=== PATIENT | male | born 1945 | race Caucasian/White ===

== ENCOUNTER 2018-10-20 05:55 | Inpatient (IN) ==
[2018-10-14 12:18] LABS: Appearance,Urine CLEAR; Bacteria,Urine 0 /hpf (0); Bilirubin,Urine NEG (NEG); Color,Urine YELLOW; Glucose,Urine (UA) NEGATIVE (NEG); Leukocyte Esterase,Urine NEG /uL (NEG); Mucus,Urine FEW /hpf (0); Protein,Urine NEG (NEG); Urine Blood 0.03 mg/dL (<0.03); Urine RBC 2 /hpf (0-1); Urine Squamous Epithelial Cell < 1 /hpf (0-4); Urine WBC 1 /hpf (0-4); Urobilinogen,Urine NEG (NEG)
[2018-10-14 13:35] LABS: Blood Urea Nitrogen 12 mg/dl (8-23)
[2018-10-14 13:49] LABS: Basophils # (Auto) 0.1 K/mcL (0.0-0.3); Basophils % (Auto) 0.9 % (0.0-2.0); Eosinophils # (Auto) 0.6 K/mcL (0.0-0.7); Eosinophils % (Auto) 8.7 % (0.0-7.0); Lymphocytes # (Auto) 2.3 K/mcL (1.5-4.8); Lymphocytes % (Auto) 32.6 % (15.5-49.0); Mean Cell Volume 101.4 fL (80.0-100.0); Mean Corpuscular HGB Conc 33.7 g/dL (31.0-36.0); Monocytes # (Auto) 0.8 K/mcL (0.1-0.9); Monocytes % (Auto) 11.8 % (1.0-12.0); Platelet Count 289 K/mcL (140-440); RBC 4.31 M/mcL (4.50-5.90); Red Cell Distribution Width 13.2 % (11.5-14.5)
[2018-10-14 14:03] LABS: Estimated Average Glucose(eAG) 108 mg/dL; Hemoglobin A1C 5.4 % HGB (4.0-6.0)
[2018-10-20] MEDS ORDERED: oxyCODONE 10 MG TAB.ER.12H PO SCH (07:00)
[2018-10-20] MEDS ORDERED: CELECOXIB 200 MG CAPSULE PO SCH (07:00)
[2018-10-20] MEDS ORDERED: ceFAZolin 1 GM VIAL IV SCH (07:00)
[2018-10-20] MEDS ORDERED: PREGABALIN 75 MG CAPSULE PO SCH (07:00)
[2018-10-20] MEDS ORDERED: MIDAZOLAM 5 MG/5 ML VIAL IV ONE (07:45)
[2018-10-20] MEDS ORDERED: ePHEDrine 50 MG/ML AMPUL IV ONE (07:45)
[2018-10-20] MEDS ORDERED: LIDOCAINE HCL/PF 100 MG/5 ML SYRINGE IV ONE (07:45)
[2018-10-20] MEDS ORDERED: fentaNYL 250 MCG/5 ML VIAL IV ONE (07:45)
[2018-10-20] MEDS ORDERED: TRANEXAMIC ACID 1,000 MG/10 ML VIAL IV ONE ×2 (07:45→09:14)
[2018-10-20] MEDS ORDERED: PROPOFOL 200 MG/20 ML VIAL IV ONE (07:45)
[2018-10-20] MEDS ORDERED: DEXAMETHASONE 10 MG/ML VIAL IV ONE (07:45)
[2018-10-20] MEDS ORDERED: ONDANSETRON 4 MG/2 ML VIAL IV ONE (07:45)
[2018-10-20] MEDS ORDERED: HEPARIN 20,000 UNIT/ML VIAL IR ONE (08:29)
[2018-10-20] MEDS ORDERED: PROMETHAZINE 25 MG/ML VIAL IV PRN (09:03)
[2018-10-20] MEDS ORDERED: BENZOCAINE/MENTHOL 1 LOZENGE PO PRN ×2 (09:03→09:14)
[2018-10-20] MEDS ORDERED: ACETAMINOPHEN 1,000 MG/100 ML BOTTLE IV ONE (09:03)
[2018-10-20] MEDS ORDERED: LACTATED RINGERS 250 ML IV PRN (09:03)
[2018-10-20] MEDS ORDERED: IPRATROPIUM/ALBUTEROL 3 ML AMPUL.NEB NEB PRN (09:03)
[2018-10-20] MEDS ORDERED: ONDANSETRON 4 MG/2 ML VIAL IV PRN ×2 (09:03→09:14)
[2018-10-20] MEDS ORDERED: FLUMAZENIL 0.1 MG/ML ML IV PRN (09:03)
[2018-10-20] MEDS ORDERED: diphenhydrAMINE 50 MG/ML VIAL IV PRN (09:03)
[2018-10-20] MEDS ORDERED: NALOXONE HCL 0.4 MG/ML VIAL IV PRN (09:03)
[2018-10-20] MEDS ORDERED: HYDROmorphone 2 MG/ML VIAL IV PRN (09:03)
[2018-10-20] MEDS ORDERED: MEPERIDINE 25 MG/ML SYRINGE IV PRN (09:03)
[2018-10-20] MEDS ORDERED: MAGNESIUM HYDROXIDE 30 ML ORAL.SUSP PO PRN (09:14)
[2018-10-20] MEDS ORDERED: BISACODYL 10 MG SUPP.RECT PR PRN (09:14)
[2018-10-20] MEDS ORDERED: POLYETHYLENE GLYCOL 3350 17 GM PACKET PO PRN (09:14)
[2018-10-20] MEDS ORDERED: FLEETS ADULT ENEMA PR PRN (09:14)
--- NOTE | 2018-10-20 09:14 | Brief Operative Note ---
Date of procedure: 10/20/18 Pre-op diagnosis: Left hip DJD Post-op diagnosis: same Procedure: Left anterior total hip arthroplasty Grafts/Implants: Yes (Depuy Actis 9 Hi offset stem, +1.5 36 delta head, 56 cup, neutral altrx elodia) Anesthesia: spinal, GLMA Findings: arthritis Complications: none Surgeon: John Baldwin Reverser: Maurizio Sanchez Estimated blood loss (cc): 150 Specimens Removed/Pathology: none sent Condition: stable Disposition: PACU
[2018-10-20] MEDS ORDERED: LACTATED RINGERS 1,000 ML IV SCH (09:15)
[2018-10-20] MEDS: fentaNYL 100 MCG/2 ML VIAL IV PRN ×4 (09:41→10:01)
[2018-10-20] MEDS: KETOROLAC 15 MG/ML VIAL IV PRN ×2 (09:45→20:34)
--- NOTE | 2018-10-20 10:01 | Operative Note ---
DATE OF OPERATION: 10/20/2018 PREOPERATIVE DIAGNOSIS: Left hip degenerative joint disease. POSTOPERATIVE DIAGNOSIS: Left hip degenerative joint disease. PROCEDURE PERFORMED: Left anterior total hip arthroplasty using DePuy Actis size 9 high offset femoral stem, +1.5 36 mm delta ceramic head ball, a 56 Malone cup with a neutral AltrX liner. SURGEON: John Baldwin MD HOUSE MOVER HELPER: Chico Sanchez PA-C. ANESTHESIA: Spinal plus general. DRAINS: None. SPECIMENS: Femoral head and reamings, which were discarded. BLOOD LOSS: 150 mL COMPLICATIONS: None. POSTOPERATIVE CONDITION: Stable. INDICATIONS FOR SURGERY: This is a 73-year-old male who has had progressive worsening left hip pain. Radiographs and physical exam were consistent with advanced degenerative disease. FINDINGS AT SURGERY: As above. Post implantation showed satisfactory component position and similar leg lengths. PROCEDURE IN DETAIL: The patient had been seen preoperatively and the correct operative site had been marked after informed consent had been obtained which included discussion of risks and benefits of surgery. Risks including, but not limited to, bleeding, possibly requiring transfusion; infection, possibly requiring implant removal and prolonged IV antibiotics; injury to nerves, blood vessels other surrounding structures; anesthetic risks; incomplete or no resolution of symptoms; leg length discrepancy; dislocation; fracture; DVT and pulmonary embolus risks; and the possibility of needing further revision joint surgery. He understood these risks and wished to proceed. Correct operative site was marked and then patient received spinal anesthesia. He was then taken to the operating room and general anesthesia given. The patient was carefully positioned onto the fracture table and the left hip and groin were then carefully prepped and draped in normal sterile fashion and a timeout was performed verifying patient name, operative site, and plan. Ioban was used to cover all skin surfaces and then a standard anterior approach incision was made with a scalpel through skin and subcutaneous tissue. Hemostasis was obtained with Bovie cautery and then blunt dissection was taken down on to the tensor fascia and this was undermined circumferentially. IrriSept was irrigated and then a ring retractor placed. Tensor fascia was incised in line with muscle fibers and then careful blunt dissection was taken medial to the muscle belly. Blunt cobra retractors were placed on the superior and inferior femoral neck. Circumflex vessels were coagulated and cut and then vastus fascia split distally. Anterior capsulectomy was performed and capsule releases taken out towards the trochanter. Traction was placed on the leg and then a corkscrew was placed in the femoral head. Osteotome was used under fluoro to identify our approximate neck cut trajectory and then oscillating tip saw was used to make our neck cut. Femoral head was removed. Bone wax was placed on the cut neck surface. We then exposed the acetabulum. Labrum was excised circumferentially as well as soft tissue from the floor. We started reaming directly medializing down to the tear drop and then increased reamer size and angle until a 55 got rim ream. We opened a 56 3-hole Malone cup. The acetabulum was irrigated with IrriSept, after a minute pulse lavaged with saline. The cup was then impacted at approximately 40 degrees of inclination and about 25 to 30 degrees of anteversion. We got excellent press-fit, so a center hole cover was placed. There was some minimal osteophyte off the anterior acetabulum which was removed with a curved osteotome. A center hole cover was placed and then a neutral AltrX liner was carefully aligned and impacted and carefully verified to be fully seated. We then released traction from the leg, externally rotated maximally, released capsule around the medial and posterior neck and then the leg was extended and adducted. Capsule was then released out towards the greater trochanter and then after we had adequate exposure a Box osteotome was used to make canal entry. An awl was used to identify canal trajectory. A rongeur and rasp were used to lateralize. We then began sequentially broaching up to a size 8 stem. We seated this below our neck cut a little ways and then calcar planed. We placed a high offset neck trial based off of preoperative templating and a +1.5 head ball trial. The hip was then reduced with mild tension. AP pelvis was taken to verify neutral rotation and then AP of the nonoperative and operative hips were overlaid. Our leg lengths appeared similar so we did, however, appear to be undersized on the stem. I dislocated and re-exposed the proximal femur. Head and neck trial were removed. I was able to impact the 8 broach down below our neck cut a little ways so we removed this and went up to a size 9. This seated right at our neck cut. We went ahead and removed the 9 trial and opened a 9 high offset Actis stem. The canal was irrigated with IrriSept, after a minute pulse lavaged with saline and then the stem was impacted. It seated down onto the neck with the collar so we opened a 1.5 head ball. The stem was carefully cleaned and dried and the head ball impacted with multiple impacts from the [id number]. We then reduced the hip with similar tension as prior. Final fluoro images were taken and saved. We irrigated the joint with IrriSept, after a minute pulse lavaged with saline. Tensor fascia was closed with two running #1 Vicryl sutures. A ring retractor was removed and IrriSept was irrigated again and after a minute pulse lavaged with saline. We tacked fat to fascia with Vicryl and then 2-0 Monocryl for subcutaneous and viviana for skin. Xeroform sterile dressings were applied. The patient was then awakened, extubated, and transferred to recovery in stable condition. BJB:sasha Job ID: [id number] Doc ID: [id number] John STEINER
--- NOTE | 2018-10-20 10:02 | XRay Report ---
HISTORY: Postop left side total hip prosthesis FINDINGS: There is a well-positioned left side total hip prosthesis. There is no fracture or malalignment. There are overlying skin viviana and soft tissue gas. The indwelling right total hip prosthesis appears normal and there is no evidence of resorption of bone around the hardware. Densely calcified plaques are seen in the iliac and femoral arteries. IMPRESSION: Well-positioned left total hip prosthesis Interpreted and Authenticated by: Johnie Isaac 10/20/18
[2018-10-20] MEDS: 0.45 % SODIUM CHLORIDE 1,000 ML IV SCH ×2 (10:34→18:33)
[2018-10-20] MEDS: 0.9 % SODIUM CHLORIDE 10 ML SYRINGE IV SCH ×3 (14:08→23:42)
[2018-10-20] MEDS: ceFAZolin 1 GM VIAL IV SCH ×2 (15:05→23:42)
[2018-10-20] MEDS: DOCUSATE SODIUM 100 MG CAPSULE PO SCH (20:33)
[2018-10-20] MEDS: ASPIRIN 325 MG ENTERIC COATED TABLET PO SCH (20:34)
[2018-10-20] MEDS ORDERED: METOPROLOL SUCCINATE 25 MG TAB.XL.24H PO SCH (21:00)
[2018-10-20] MEDS ORDERED: OMEPRAZOLE 20 MG CAPSULE PO SCH (21:00)
[2018-10-20] MEDS ORDERED: SENNOSIDES 1 TABLET PO SCH (21:00)
[2018-10-20] MEDS: diphenhydrAMINE 25 MG CAPSULE PO PRN (22:21)
[2018-10-20] MEDS: HYDROCODONE/APAP 7.5/325MG TABLET PO PRN (22:21)
[2018-10-21] MEDS: diphenhydrAMINE 25 MG CAPSULE PO PRN ×2 (04:07→08:15)
[2018-10-21] MEDS: HYDROCODONE/APAP 7.5/325MG TABLET PO PRN ×2 (04:08→08:14)
[2018-10-21] MEDS: 0.45 % SODIUM CHLORIDE 1,000 ML IV SCH (04:15)
[2018-10-21] MEDS: 0.9 % SODIUM CHLORIDE 10 ML SYRINGE IV SCH (05:02)
--- NOTE | 2018-10-21 07:41 | Discharge Summary ---
Providers - Providers Patient information: Note initiated : 10/21/18 at 7:39 am Service Date, if different from initiated Date: [] Patient: Gordo Petersen 73 y/o M admitted on 10/20/18 for Left Total Hip Arthroplasty. Chief Complaint: [] Discharge date: 10/21/18 Hospitalization Hospital course: Pt was admitted for a [facility]. Pt underwent the procedure on the day of admission. Pt spent one night on the floor for IV abx, IV pain meds, and PT. Pt will use ASA for DVT prophylaxis and was prescribed appropriate pain meds. Will f/u in 2 weeks. Discharge diagnosis: L hip OA Exam - Exam Clean and dry: Yes Weight bearing status: as tolerated Ortho Discharge - [facility] - Patient Instructions Diet: Regular Diet Activity: activity as tolerated Total Hip Protocol: Follow activity instructions as provided by Physical Therapy. Dressing Care: May shower in 2 days - Follow Up Plan Follow Up Appointments: Maurizio Sanchez PA-C [Physician Nuclear Medicine Medical Director] - 11/04/18 10:40 am Disposition: Home, Self-Care Prognosis: Good Rehab Potential: Good Overall status at discharge: patient is progressing back to baseline - Orders For Discharge Prescriptions: Aspirin [Ecotrin] 325 mg PO BID #60 tab.ec Hydrocodone/APAP 7.5/325Mg [[place] 7.5-325Mg] 1 - 2 tab PO Q4HP PRN #90 tab PRN Reason: Pain Level 3-6 Pending Studies Resuscitation Status Full Code Diet Regular Diet Start ThuOct 20 09 Hydrocodone Bitart/Acetaminophen ([place] 7.5/325mg) 0 tab PO Q4HP PRN PRN Reason: PAIN LEVEL 3-6 Last Admin: 10/21/18 04:08 Dose: 1 tab Admin: 10/20/18 22:21 Dose: 1 tab Aspirin (Ecotrin) 325 mg PO BID [facility] Last Admin: 10/20/18 20:34 Dose: 325 mg Diphenhydramine HCl (Benadryl) 25 mg PO Q4HP PRN PRN Reason: Allergic Symptoms Last Admin: 10/21/18 04:07 Dose: 25 mg Admin: 10/20/18 22:21 Dose: 25 mg Docusate Sodium (Colace) 100 mg PO BID [facility] Last Admin: 10/20/18 20:33 Dose: Not Given Sodium Chloride (Sodium Chloride 0.45%) 1,000 mls @ 100 mls/hr IV .Q10H [facility] Last Admin: 10/21/18 04:15 Dose: Infusion: 10/20/18 21:34 Dose: 0 mls/hr Admin: 10/20/18 18:33 Dose: Admin: 10/20/18 10:34 Dose: 100 mls/hr Ketorolac Tromethamine (Toradol) 15 mg IV Q6HP PRN PRN Reason: Pain Stop: 10/22/18 09:16 Last Admin: 10/20/18 20:34 Dose: 15 mg Admin: 10/20/18 09:45 Dose: 15 mg Metoprolol Succinate (Toprol Xl) 25 mg PO HS [facility] Last Admin: 10/20/18 20:34 Dose: 25 mg Morphine Sulfate (Morphine) 0 mg IV Q1HP PRN PRN Reason: PAIN LEVEL > 6 Last Admin: 10/20/18 15:05 Dose: 4 mg Omeprazole (Prilosec) 20 mg PO HS [facility] Last Admin: 10/20/18 20:34 Dose: 20 mg Senna (Senokot) 2 tab PO [facility] Last Admin: 10/20/18 20:33 Dose: Not Given Sodium Chloride (Saline Flush) 10 ml IV Q8 [facility] Last Admin: 10/21/18 05:02 Dose: Admin: 10/20/18 23:42 Dose: 10 ml Admin: 10/20/18 22:16 Dose: 10 ml Admin: 10/20/18 14:08 Dose: Not Given Shift Summary 10/21/18 03:13 Shift Summary by Shira Jimenez AOx4. L total hip with gauze dressing CDI. OOB SBA with FWW. AV Boots. Voiding without issue. PIV SL. VSS. AICD in place to L chest. Pain elevated to 8/10 overnight. PRN toradol x1 without relief. Pain decreased to 5/10 post administration of PRN norco + benadryl. Patient currently resting in bed without complaint. Initialized on 10/21/18 03:13 - END OF NOTE
[2018-10-21] MEDS: ASPIRIN 325 MG ENTERIC COATED TABLET PO SCH (08:15)
[2018-10-21] MEDS: DOCUSATE SODIUM 100 MG CAPSULE PO SCH (08:15)
[2018-10-26] MEDS ORDERED: predniSONE 10 MG TABLET PO SCH (08:00)
== END 2018-10-21 12:50 | disposition home or self-care (01) | DRG 470 ==
LOC: MEDSUR 05:55
PROVIDERS: ADMIT Orthopaedic Surgery; ATTEND Orthopaedic Surgery

== ENCOUNTER 2021-06-30 08:03 | Inpatient (IN) ==
[2021-06-30] MEDS ORDERED: diphenhydrAMINE 50 MG/ML VIAL IV ONE (08:56)
[2021-06-30] MEDS ORDERED: PROCHLORPERAZINE 10 MG/2 ML VIAL IV ONE (08:56)
[2021-06-30] MEDS ORDERED: DEXAMETHASONE 10 MG/ML VIAL IV ONE (08:56)
[2021-06-30] MEDS ORDERED: HYDROcodone/APAP 5/325MG TABLET PO ONE (08:56)
[2021-06-30] MEDS ORDERED: 0.9 % SODIUM CHLORIDE 1,000 ML IV ONE (08:56)
[2021-06-30] MEDS ORDERED: ALBUTEROL SULFATE 200 PUFF INHALER INH ONE (08:56)
--- NOTE | 2021-06-30 09:00 | Emergency Department Note ---
HPI General Chief complaint: Cold/Flu Symptoms Stated complaint: cough Time Seen by Provider: 06/30/21 08:09 Source: patient, family (), RN notes reviewed and old records reviewed Mode of arrival: ambulatory History of Present Illness HPI Narrative: Narrative: Related Data Home Medications Medication Instructions Recorded Confirmed epinephrine 0.3 mg IM ONCE PRN 10/14/18 06/18/21 metoprolol succinate 25 mg PO HS 10/14/18 06/18/21 aspirin 81 mg tablet,delayed 81 mg PO .TWICE A WEEK tab 08/24/19 06/18/21 release losartan 25 mg tablet 25 mg PO QDAY 08/27/20 06/18/21 ezetimibe 10 mg tablet 10 mg PO QDAY 01/01/21 06/18/21 Previous Rx's Medication Instructions Recorded hydrocodone-acetaminophen 1 - 2 tab PO Q4HP PRN #90 tab 10/21/18 omeprazole 20 mg capsule,delayed 20 mg PO HS #90 cap 06/13/21 release fluticasone furoate 100 1 inh INHALATION Q24H #60 ea 06/27/21 mcg-vilanterol 25 mcg/dose inhalation powder Allergies Allergy/AdvReac Type Severity Reaction Status Date / Time quinine Allergy Mild Chest Pain Verified 06/18/21 14:53 Hydroxychloroquine AdvReac Mild Itching Verified 06/18/21 14:53 lisinopril AdvReac Mild Cough Verified 06/18/21 14:53 yellow jackets Allergy Unknown Swelling Uncoded 06/18/21 14:53 of Lip/Tongue/Throat Review of Systems ROS ROS Narrative: Narrative: PFSH Narrative Patient History Narrative: Narrative: Medical/Surgical/Family History All Active Problems ICD (implantable cardioverter-defibrillator) in place (Chronic) Ischemic cardiomyopathy (Chronic) Medicare annual wellness visit, initial (Acute) 23-polyvalent pneumococcal polysaccharide vaccine declined (Chronic) Influenza vaccine refused (Chronic) Fibula fracture (Acute) Benign paroxysmal positional vertigo (Acute) Hypotension due to hypovolemia (Acute) Diffuse papular rash (Acute) Encounter for long-term (current) use of high-risk medication (Chronic) Cough in adult (Acute) Sore throat (Acute) Post-nasal drip (Acute) Dupuytren's contracture of both hands (Chronic) 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) Arthralgia of hands, bilateral (Chronic) Right hip pain (Chronic) Trochanteric bursitis, right hip (Chronic) Left carpal tunnel syndrome (Chronic) Arthritis (Chronic) Joint pain (Chronic) Gallbladder problem (Chronic) Heart trouble (Chronic) Hypercholesteremia (Chronic) Acid reflux (Chronic) BPH without obstruction/lower urinary tract symptoms (Chronic) COPD (chronic obstructive pulmonary disease) (Chronic) Personal history of colonic polyps (Chronic) Coronary artery disease (Chronic) Erectile dysfunction (Chronic) Fracture of finger, closed (Chronic) Hematuria, unspecified (Chronic) Hyperlipidemia (Chronic) Hypertension, essential (Chronic) Osteoarthrosis (Acute) Adhesions of foreskin (Chronic) Hand joint pain (Chronic) Swelling (Chronic) Medical History 23-polyvalent pneumococcal polysaccharide vaccine declined Declining Prevnar 13 and Pneumovax 23 Acid reflux 1996 Adhesions of foreskin Arthralgia of hands, bilateral Arthritis 2000 Bleeding tendency 2004 BPH without obstruction/lower urinary tract symptoms COPD (chronic obstructive pulmonary disease) Coronary artery disease With stent Dupuytren's contracture of both hands Erectile dysfunction Erectile/Sexual Dysfunction Fracture of finger, closed Gallbladder problem 2007 Hand joint pain Heart trouble 2008 Hematuria, unspecified BEH History of pneumothorax Hypercholesteremia 2008 Hyperlipidemia Hypertension, essential ICD (implantable cardioverter-defibrillator) in place Inflammatory arthropathy Influenza vaccine refused Ischemic cardiomyopathy Joint pain 2000 Kidney stones 1998 Left carpal tunnel syndrome Medicare annual wellness visit, initial [place] (myocardial infarction) Osteoarthrosis Personal history of colonic polyps Rheumatoid factor positive Right hip pain Swelling Trochanteric bursitis, right hip Surgical History H/O foot surgery [id number] H/O heart artery stent 2008 History of cervical discectomy With hardwear History of heart surgery History of orthopedic surgery finger History of repair of right rotator cuff History of right hip replacement History of vasectomy Hx of cholecystectomy 2009 S/P hip replacement 2011 S/P LASIK surgery of both eyes S/P surgery on nasal septum 1993 Status post colonoscopy 2011- Dr. Felix Status post left foot surgery Family History Mother Malignant neoplasm of breast Mother at 42Y Father Malignant neoplasm of pharynx at 68Y - throat CA Sister Malignant neoplasm of ovary Unknown Diabetes mellitus Social History Smoking Status: Former smoker Alcohol Intake Frequency: 0-2 drinks per day Substance Use: does not use Exam Narrative Narrative: Narrative: Course Vital Signs Vital signs: Vital Signs Temperature 98.0 F 06/30/21 08:07 Pulse Rate 76 06/30/21 08:07 Respiratory Rate 24 H 06/30/21 08:07 Blood Pressure 115/97 06/30/21 08:07 Pulse Oximetry (%) 84 L 06/30/21 08:07 Temperature 98.0 F 06/30/21 08:07 Pulse Rate 74 06/30/21 08:31 Respiratory Rate 24 H 06/30/21 08:07 Blood Pressure 111/76 06/30/21 08:31 Pulse Oximetry (%) 93 06/30/21 08:31 MDM MDM Narrative Medical decision making narrative: Narrative: ED POC Tests ED POC Tests: PATRICK - SARS Antigen Positive Discharge Plan Patient/Caregiver Discharge Instructions Prescriptions: No Action omeprazole 20 mg capsule,delayed release(DR/EC) 20 mg PO HS Qty: 90 RF: 3 Breo Ellipta 100-25 mcg/dose blister with device 1 inh inhalation Q24H Qty: 60 RF: 0 aspirin [Adult Low Dose Aspirin] 81 mg tablet,delayed release (DR/EC) 81 mg PO .TWICE A WEEK RF: 0 losartan 25 mg tablet 25 mg PO QDAY RF: 0 ezetimibe [Zetia] 10 mg tablet 10 mg PO QDAY RF: 0 metoprolol succinate 25 MG tablet extended release 24 hr 25 mg PO HS RF: 0 epinephrine 0.3 MG/0.3 ML auto-injector 0.3 mg IM ONCE PRN (Reason: Allergic Reaction) RF: 0 hydrocodone-acetaminophen 1 TAB tablet 1 - 2 tab PO Q4HP PRN (Reason: Pain Level 3-6) Qty: 90 RF: 0
--- NOTE | 2021-06-30 09:04 | Emergency Department Note ---
SOB HPI General Chief Complaint: Cold/Flu Symptoms Stated Complaint: cough Time Seen by Provider: 06/30/21 08:09 Source: patient, family (), RN notes reviewed and old records reviewed Mode of arrival: ambulatory Limitations: no limitations History of Present Illness HPI Narrative: Narrative: 76-year-old male complains of increasing shortness of breath associated with coughing x2 weeks. It is unrelieved with his bronchodilators and he feels it makes it worse. He denies any fevers or chills complains of cough it is nonproductive complains of chest pain with coughing no chest pain with rest. Pain is worse with severe coughing and shortness of breath that is worse with any exertional activity or coughing. He denies any hemoptysis he denies any abdominal pain he denies any bowel or bladder changes. is positive for Covid. MD Complaint: shortness of breath, cough and pain with inspiration Onset (ago): week(s) (2) Context: recent illness Severity: moderate Consistency/Duration: intermittent Improves with: nothing Worsens with: exertion, medication, coughing and inspiration Known history of: COPD and other ( with Covid) Associated symptoms: Reports chest pain, pain with inspiration, cough, wheezing and palpitations; Denies fever, sputum production, orthopnea, lower extremity pain, polyuria, polydipsia, parasthesias, carpopedal spasm, hemoptysis, diaphoresis, nausea/vomiting, syncope, abdominal pain, rash and sense of impending doom Treatment prior to arrival: bronchodilator Related Data Home oxygen amount: none Home Medications Medication Instructions Recorded Confirmed epinephrine 0.3 mg IM ONCE PRN 10/14/18 06/30/21 metoprolol succinate 25 mg PO HS 10/14/18 06/30/21 aspirin 81 mg tablet,delayed 81 mg PO .TWICE A WEEK tab 08/24/19 06/30/21 release losartan 25 mg tablet 25 mg PO QDAY 08/27/20 06/30/21 ezetimibe 10 mg tablet 10 mg PO QDAY 01/01/21 06/30/21 Previous Rx's Medication Instructions Recorded hydrocodone-acetaminophen 1 - 2 tab PO Q4HP PRN #90 tab 10/21/18 omeprazole 20 mg capsule,delayed 20 mg PO HS #90 cap 06/13/21 release fluticasone furoate 100 1 inh INHALATION Q24H #60 ea 06/27/21 mcg-vilanterol 25 mcg/dose inhalation powder Allergies Allergy/AdvReac Type Severity Reaction Status Date / Time quinine Allergy Mild Chest Pain Verified 06/18/21 14:53 Hydroxychloroquine AdvReac Mild Itching Verified 06/18/21 14:53 lisinopril AdvReac Mild Cough Verified 06/18/21 14:53 yellow jackets Allergy Unknown Swelling Uncoded 06/18/21 14:53 of Lip/Tongue/Throat Review of Systems ROS ROS Narrative: Narrative: All systems ED: reviewed and negative except as stated. [facility] Narrative Patient History Narrative: Narrative: Medical/Surgical/Family History All Active Problems (Updated 06/30/21 @ 11:35 by Choco Molina MD) Pneumonia due to 2019 novel coronavirus (Acute) Hypoxia (Acute) ICD (implantable cardioverter-defibrillator) in place (Chronic) Ischemic cardiomyopathy (Chronic) Medicare annual wellness visit, initial (Acute) 23-polyvalent pneumococcal polysaccharide vaccine declined (Chronic) Influenza vaccine refused (Chronic) Fibula fracture (Acute) Benign paroxysmal positional vertigo (Acute) Hypotension due to hypovolemia (Acute) Diffuse papular rash (Acute) Encounter for long-term (current) use of high-risk medication (Chronic) Cough in adult (Acute) Sore throat (Acute) Post-nasal drip (Acute) Dupuytren's contracture of both hands (Chronic) 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) Arthralgia of hands, bilateral (Chronic) Right hip pain (Chronic) Trochanteric bursitis, right hip (Chronic) Left carpal tunnel syndrome (Chronic) Arthritis (Chronic) Joint pain (Chronic) Gallbladder problem (Chronic) Heart trouble (Chronic) Hypercholesteremia (Chronic) Acid reflux (Chronic) BPH without obstruction/lower urinary tract symptoms (Chronic) COPD (chronic obstructive pulmonary disease) (Chronic) Personal history of colonic polyps (Chronic) Coronary artery disease (Chronic) Erectile dysfunction (Chronic) Fracture of finger, closed (Chronic) Hematuria, unspecified (Chronic) Hyperlipidemia (Chronic) Hypertension, essential (Chronic) Osteoarthrosis (Acute) Adhesions of foreskin (Chronic) Hand joint pain (Chronic) Swelling (Chronic) Medical History 23-polyvalent pneumococcal polysaccharide vaccine declined Declining Prevnar 13 and Pneumovax 23 Acid reflux 1996 Adhesions of foreskin Arthralgia of hands, bilateral Arthritis 1999 Bleeding tendency 2004 BPH without obstruction/lower urinary tract symptoms COPD (chronic obstructive pulmonary disease) Coronary artery disease With stent Dupuytren's contracture of both hands Erectile dysfunction Erectile/Sexual Dysfunction Fracture of finger, closed Gallbladder problem 2006 Hand joint pain Heart trouble 2008 Hematuria, unspecified BEH History of pneumothorax Hypercholesteremia 2008 Hyperlipidemia Hypertension, essential ICD (implantable cardioverter-defibrillator) in place Inflammatory arthropathy Influenza vaccine refused Ischemic cardiomyopathy Joint pain 1999 Kidney stones 1997 Left carpal tunnel syndrome Medicare annual wellness visit, initial [place] (myocardial infarction) Osteoarthrosis Personal history of colonic polyps Rheumatoid factor positive Right hip pain Swelling Trochanteric bursitis, right hip Surgical History H/O foot surgery [id number] H/O heart artery stent 2007 History of cervical discectomy With hardwear History of heart surgery History of orthopedic surgery finger History of repair of right rotator cuff History of right hip replacement History of vasectomy Hx of cholecystectomy 2008 S/P hip replacement 2010 S/P LASIK surgery of both eyes S/P surgery on nasal septum 1994 Status post colonoscopy 2011- Dr. Felix Status post left foot surgery Family History Mother Malignant neoplasm of breast Mother at 42Y Father Malignant neoplasm of pharynx at 68Y - throat CA Sister Malignant neoplasm of ovary Unknown Diabetes mellitus Social History Smoking Status: Former smoker Alcohol Intake Frequency: 0-2 drinks per day Substance Use: does not use Exam Narrative Narrative: Narrative: General Limitations: no limitations General appearance: Present alert and in distress Head Head: Present atraumatic, normocephalic and normal inspection Eye Eye: Present normal appearance, PERRL and EOMI ENT ENT: Present normal exam and mucous membranes dry Neck Neck: Present normal inspection and full ROM Chest Chest: Present normal inspection; Absent tenderness Respiratory Respiratory: Present respiratory distress, wheezes, prolonged expiratory phase and decreased breath sounds Cardiovascular Cardiovascular: Present regular rate, normal rhythm and systolic murmur Adbominal Abdominal: Present soft; Absent distention, tenderness, guarding and rebound Extremities Extremities: Present normal inspection and full ROM; Absent tenderness, normal capillary refill, pedal edema and pretibial edema Back Back: Present normal inspection; Absent CVA tenderness (R) and CVA tenderness (L) Neurological Neurological: Present alert and oriented X3 Psychiatric Psychiatric: Present normal affect and normal mood Skin Skin: Present warm (WNL); Absent rash Course Vital Signs Vital signs: Vital Signs Temperature 98.0 F 06/30/21 08:07 Pulse Rate 76 06/30/21 08:07 Respiratory Rate 24 H 06/30/21 08:07 Blood Pressure 115/97 06/30/21 08:07 Pulse Oximetry (%) 84 L 06/30/21 08:07 Temperature 98.0 F 06/30/21 08:07 Pulse Rate 65 06/30/21 11:17 Respiratory Rate 12 06/30/21 11:17 Blood Pressure 102/58 06/30/21 11:17 Pulse Oximetry (%) 94 06/30/21 11:17 MDM MDM Narrative Medical decision making narrative: Narrative: 76-year-old COPD patient hypoxic with Covid pneumonia received dexamethasone and IV fluids is stable on supplemental oxygen discussed with hospitalist who graciously agreed to admit patient Differential Diagnosis Differential Diagnosis: Covid, Covid pneumonia, pneumonia, COPD Medical Records Medical records reviewed: Yes I reviewed the patient's medical records. Lab Data Lab results reviewed: Yes I reviewed the patient's lab results. Result diagrams: 06/30/21 08:57 06/30/21 08:57 Labs: Lab Results 06/30/21 06/30/21 06/30/21 Range/Units 08:57 08:57 09:44 WBC 3.9 L (4.5-11.0) K/mcL RBC 4.55 L (4.63-6.08) M/mcL Hgb 15.9 (13.7-17.5) g/dL Hct 45.0 (40.1-51.0) % MCV 98.9 (80.0-100.0) fL MCH 34.9 H (26.0-34.0) pg MCHC 35.3 (31.0-36.0) g/dL RDW 12.3 (11.5-14.5) % Plt Count 123 L (140-440) K/mcL MPV 10.0 (7.4-10.4) fL Neut % (Auto) 54.4 (38.0-78.0) % Lymph % (Auto) 34.6 (15.5-49.0) % [place] % (Auto) 10.5 (1.0-12.0) % Eos % (Auto) 0 (0.0-7.0) % Baso % (Auto) 0.5 (0.0-2.0) % Lymph # (Auto) 1.35 L (1.50-4.80) K/mcL [place] # (Auto) 0.41 (0.10-0.90) K/mcL Eos # (Auto) 0 (0.00-0.70) K/mcL Baso # (Auto) 0.02 (0.00-0.30) K/mcL Absolute Neutrophils 2.12 (1.80-8.00) K/mcL VBG Lactic Acid 0.4 L (0.5-2.0) mmol/L Sodium 126 L (133-145) mmol/L Potassium 3.6 (3.3-5.1) mmol/L Chloride 90 L (96-108) mmol/L Carbon Dioxide 21 L (22-30) mmol/L Anion Gap 15.0 (8.0-16.0) BUN 11 (8-23) mg/dL Creatinine 1.0 (0.7-1.2) mg/dL GFR Calculation 72 Glucose 97 (70-105) mg/dL Calcium 8.1 L (8.6-10.4) mg/dL Total Bilirubin 0.4 (0.1-1.0) mg/dL AST 50 H (<40) U/L ALT 28 (<40) U/L Alkaline Phosphatase 54 (39-117) U/L Total Protein 6.7 (5.9-8.4) gm/dL Albumin 3.5 (3.2-5.2) gm/dL Globulin 3.2 (2.2-3.7) gm/dL Albumin/Globulin Ratio 1.1 (1.0-2.3) ED POC Tests ED POC Tests: PATRICK - SARS Antigen Positive Radiology Data Radiology results reviewed: Yes I reviewed the patient's radiology results. Radiology results narrative: Covid pneumonia EKG Data EKG #1: EKG attestation: Yes I reviewed and interpreted this EKG. and Yes There are no EKG findings of acute coronary syndrome EKG shows normal: sinus rhythm Rate: normal (74) Rhythm: NSR Q waves: v1, v2, v3 and v4 Interpretation: nonspecific ST-T wave changes Pulse Oximetry Data Pulse Ox %: 84 Interpretation: 84% on room air that is hypoxic for this patient is 93% on 2 L nasal cannula. Discharge Plan Patient/Caregiver Discharge Instructions Pt seen by B[facility]ING STITCHER/PA only: No Clinical Impression: Pneumonia due to 2019 novel coronavirus, Hypoxia Patient Disposition: Xfer As Inpt ([facility]) Follow up with: Moisés Alcocer PA-C [Primary Care Provider] - Prescriptions: No Action omeprazole 20 mg capsule,delayed release(DR/EC) 20 mg PO HS Qty: 90 RF: 3 Breo Ellipta 100-25 mcg/dose blister with device 1 inh inhalation Q24H Qty: 60 RF: 0 aspirin [Adult Low Dose Aspirin] 81 mg tablet,delayed release (DR/EC) 81 mg PO .TWICE A WEEK RF: 0 losartan 25 mg tablet 25 mg PO QDAY RF: 0 ezetimibe [Zetia] 10 mg tablet 10 mg PO QDAY RF: 0 metoprolol succinate 25 MG tablet extended release 24 hr 25 mg PO HS RF: 0 epinephrine 0.3 MG/0.3 ML auto-injector 0.3 mg IM ONCE PRN (Reason: Allergic Reaction) RF: 0 hydrocodone-acetaminophen 1 TAB tablet 1 - 2 tab PO Q4HP PRN (Reason: Pain Level 3-6) Qty: 90 RF: 0
[2021-06-30 10:17] LABS: Basophils # (Auto) 0.02 K/mcL (0.00-0.30); Basophils % (Auto) 0.5 % (0.0-2.0); Eosinophils # (Auto) 0 K/mcL (0.00-0.70); Eosinophils % (Auto) 0 % (0.0-7.0); Hemoglobin 15.9 g/dL (13.7-17.5); Lymphocytes # (Auto) 1.35 K/mcL (1.50-4.80); Lymphocytes % (Auto) 34.6 % (15.5-49.0); Mean Cell Volume 98.9 fL (80.0-100.0); Mean Corpuscular HGB Conc 35.3 g/dL (31.0-36.0); Monocytes # (Auto) 0.41 K/mcL (0.10-0.90); Monocytes % (Auto) 10.5 % (1.0-12.0); Neutrophils % (Auto) 54.4 % (38.0-78.0); Platelet Count 123 K/mcL (140-440); RBC 4.55 M/mcL (4.63-6.08); Red Cell Distribution Width 12.3 % (11.5-14.5); WBC 3.9 K/mcL (4.5-11.0)
[2021-06-30 10:32] LABS: ALT/SGPT 28 U/L (<40); AST/SGOT 50 U/L (<40); Albumin 3.5 gm/dL (3.2-5.2); Albumin/Globulin Ratio 1.1 (1.0-2.3); Alkaline Phosphatase 54 U/L (39-117); Bilirubin,Total 0.4 mg/dL (0.1-1.0); Blood Urea Nitrogen 11 mg/dL (8-23); Calcium 8.1 mg/dL (8.6-10.4); Carbon Dioxide 21 mmol/L (22-30); Chloride 90 mmol/L (96-108); Globulin 3.2 gm/dL (2.2-3.7); Glomerular Filtration Rate 72; Glucose 97 mg/dL (70-105)
[2021-06-30] MEDS ORDERED: FLUTICASONE FUROATE VILANTEROL INHALATION SCH (11:45)
[2021-06-30] MEDS ORDERED: HYDROcodone/APAP (PP) 7.5/325MG TABLET (#4) PO PRN (11:45)
--- NOTE | 2021-06-30 12:00 | Internal Med History&Physical ---
HPI History of Present Illness Patient information: Note initiated : 06/30/21 at 11:51 am Service Date, if different from initiated Date: [] Patient: Gordo Petersen 76 y/o M admitted on for cough. Chief Complaint: [CoVID pneumonia] History of present illness: Mr. Petersen is a 76 year old M history of COPD, CAD status post ICD placement, essential HTN, mixed dyslipidemia, osteoarthritis bilateral hips, presenting with 1 month history of gradually worsening of shortness of breath together with productive cough with white sputum. Patient is not being vaccinated against Covid pneumonia. Patient denies any sick contact or recent travel. Over the last month, patient has gradually worsening shortness of breath together with productive cough with right sputum. He is also complaining of respiratory wheezing. He is also committing of right-sided chest pain whenever he coughs. He denies any fever or chills or diaphoresis. He is also complaining of general body weakness together with generalized muscle aches. There is no change in appetite and he denies any GI symptoms such as nausea vomiting diarrhea constipation's. Due to the worsening nature of his symptoms, he decided to come to our ED today for further evaluations. Vital s igns significant for oxygen saturations 85% on room air. Labs significant for lack of leukocytosis with WBC 3.9. Covid Maria Isabel test positive. Constitutional Constitutional: Present weakness; Absent chills, excessive sweating, fatigue and fever(s) EENT Eyes: Absent blurry vision, change in vision, loss of vision and other visual disturbances Ears: Absent decreased hearing and tinnitus Nose, mouth and throat: Absent abnormal hearing, dry mouth, headache(s), nasal congestion and sore throat Cardiovascular Cardiovascular: Present chest pain; Absent chest pain at rest, edema, irregular heart rhythm and palpatations Respiratory Respiratory: Present cough, dyspnea, dyspnea on exertion, wheezing and excessive phlegm production Gastrointestinal Gastrointestinal: Absent abdominal pain, constipation, diarrhea, nausea and vomiting Musculoskeletal Musculoskeletal: Present myalgias; Absent back pain, deformity, limited range of motion, muscle cramps, muscle weakness and numbness Integumentary Integumentary: Absent lesions, rash and wounds Neurological Neurological: Absent focal weakness, headache(s) and numbness Psychiatric Psychiatric: Absent anxiety, depression and hallucinations PFSH PFSH All Active Problems (Updated 06/30/21 @ 11:35 by Choco Molina MD) Pneumonia due to 2019 novel coronavirus (Acute) Hypoxia (Acute) ICD (implantable cardioverter-defibrillator) in place (Chronic) Ischemic cardiomyopathy (Chronic) Medicare annual wellness visit, initial (Acute) 23-polyvalent pneumococcal polysaccharide vaccine declined (Chronic) Influenza vaccine refused (Chronic) Fibula fracture (Acute) Benign paroxysmal positional vertigo (Acute) Hypotension due to hypovolemia (Acute) Diffuse papular rash (Acute) Encounter for long-term (current) use of high-risk medication (Chronic) Cough in adult (Acute) Sore throat (Acute) Post-nasal drip (Acute) Dupuytren's contracture of both hands (Chronic) 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) Arthralgia of hands, bilateral (Chronic) Right hip pain (Chronic) Trochanteric bursitis, right hip (Chronic) Left carpal tunnel syndrome (Chronic) Arthritis (Chronic) Joint pain (Chronic) Gallbladder problem (Chronic) Heart trouble (Chronic) Hypercholesteremia (Chronic) Acid reflux (Chronic) BPH without obstruction/lower urinary tract symptoms (Chronic) COPD (chronic obstructive pulmonary disease) (Chronic) Personal history of colonic polyps (Chronic) Coronary artery disease (Chronic) Erectile dysfunction (Chronic) Fracture of finger, closed (Chronic) Hematuria, unspecified (Chronic) Hyperlipidemia (Chronic) Hypertension, essential (Chronic) Osteoarthrosis (Acute) Adhesions of foreskin (Chronic) Hand joint pain (Chronic) Swelling (Chronic) Medical History 23-polyvalent pneumococcal polysaccharide vaccine declined Declining Prevnar 13 and Pneumovax 23 Acid reflux 1996 Adhesions of foreskin Arthralgia of hands, bilateral Arthritis 2000 Bleeding tendency 2004 BPH without obstruction/lower urinary tract symptoms COPD (chronic obstructive pulmonary disease) Coronary artery disease With stent Dupuytren's contracture of both hands Erectile dysfunction Erectile/Sexual Dysfunction Fracture of finger, closed Gallbladder problem 2007 Hand joint pain Heart trouble 2008 Hematuria, unspecified BEH History of pneumothorax Hypercholesteremia 2008 Hyperlipidemia Hypertension, essential ICD (implantable cardioverter-defibrillator) in place Inflammatory arthropathy Influenza vaccine refused Ischemic cardiomyopathy Joint pain 2000 Kidney stones 1998 Left carpal tunnel syndrome Medicare annual wellness visit, initial [place] (myocardial infarction) Osteoarthrosis Personal history of colonic polyps Rheumatoid factor positive Right hip pain Swelling Trochanteric bursitis, right hip Surgical History H/O foot surgery [id number] H/O heart artery stent 2007 History of cervical discectomy With hardwear History of heart surgery History of orthopedic surgery finger History of repair of right rotator cuff History of right hip replacement History of vasectomy Hx of cholecystectomy 2008 S/P hip replacement 2010 S/P LASIK surgery of both eyes S/P surgery on nasal septum 1993 Status post colonoscopy 2011- Dr. Felix Status post left foot surgery Family History Mother Malignant neoplasm of breast Mother at 42Y Father Malignant neoplasm of pharynx at 68Y - throat CA Sister Malignant neoplasm of ovary Unknown Diabetes mellitus Social History household members: spouse housing: house lives independently: Yes marital status: education level: college service: Yes service: retired branch: [employer] residential: No occupational status: retired occupation: [employer] pets and animals: Yes pets and animals: dog(s) hx recent travel: No sexually active: No other: Children - 2/6 Bio GC/12 Ext GC/4 GGC well-balanced diet: about half the time physical activity: other details: Active lifestyle smoking status: Former smoker quit date: 05/21/06 alcohol intake frequency: 0-2 drinks per day substance use type: does not use special contreras needs: No victim of physical abuse: No victim of emotional abuse: No victim of sexual abuse: No MEDS/ALLERGIES Home Medications and Allergies Home Medications Medication Instructions Recorded Confirmed Type epinephrine 0.3 mg IM ONCE PRN 10/14/18 06/30/21 History metoprolol succinate 25 mg PO HS 10/14/18 06/30/21 History hydrocodone-acetaminophen 1 - 2 tab PO Q4HP PRN #90 tab 10/21/18 06/30/21 Rx aspirin 81 mg tablet,delayed 81 mg PO .TWICE A WEEK tab 08/24/19 06/30/21 History release losartan 25 mg tablet 25 mg PO QDAY 08/27/20 06/30/21 History ezetimibe 10 mg tablet 10 mg PO QDAY 01/01/21 06/30/21 History omeprazole 20 mg capsule,delayed 20 mg PO HS #90 cap 06/13/21 06/30/21 Rx release fluticasone furoate 100 1 inh INHALATION Q24H #60 ea 06/27/21 06/30/21 Rx mcg-vilanterol 25 mcg/dose inhalation powder Allergies Allergy/AdvReac Type Severity Reaction Status Date / Time quinine AdvReac Intermediate Chest Pain Verified 06/30/21 11:54 Hydroxychloroquine AdvReac Mild Itching Verified 06/18/21 14:53 lisinopril AdvReac Mild Cough Verified 06/18/21 14:53 yellow jackets Allergy Severe Swelling Uncoded 06/30/21 11:54 of Lip/Tongue/Throat EXAM Constitutional Vitals: Temp Pulse Resp BP Pulse Ox 36.7 C 67 17 102/58 92 06/30/21 08:07 06/30/21 11:42 06/30/21 11:42 06/30/21 11:17 06/30/21 11:42 General appearance: cooperative and no acute distress Head Head exam: Present atraumatic and normocephalic Eye Eye exam: Present EOMI and PERRL ENT ENT exam: Present mucous membranes moist, normal exam and normal external ear exam Additional comments: Nasal cannula in place Neck Neck exam: Present normal inspection; Absent lymphadenopathy, tenderness and thyromegaly Respiratory Respiratory exam: Present rhonchi; Absent accessory muscle use, respiratory distress and wheezes Cardiovascular Cardiovascular exam: Present normal rate and rhythm; Absent JVD GI/Abdominal GI/Abdominal exam: Present normal bowel sounds and soft; Absent organomegaly and tenderness Rectal Rectal exam: Present deferred Extremities Exam Extremities exam: Present full ROM, normal capillary refill and normal inspection; Absent tenderness Neurological Exam Neurological exam: Present alert, CN II-XII intact and oriented X3; Absent motor sensory deficit Psychiatric Psychiatric exam: Present normal affect and normal mood; Absent anxious and depressed Skin Skin exam: Present dry and intact DATA Data Completed and Pending Labs: Labs from last 24 hours 06/30/21 06/30/21 06/30/21 09:44 08:57 08:57 WBC 3.9 L RBC 4.55 L Hgb 15.9 Hct 45.0 MCV 98.9 MCH 34.9 H MCHC 35.3 RDW 12.3 Plt Count 123 L MPV 10.0 Neut % (Auto) 54.4 Lymph % (Auto) 34.6 [place] % (Auto) 10.5 Eos % (Auto) 0 Baso % (Auto) 0.5 Lymph # (Auto) 1.35 L [place] # (Auto) 0.41 Eos # (Auto) 0 Baso # (Auto) 0.02 Absolute Neutrophils 2.12 VBG Lactic Acid 0.4 L Sodium 126 L Potassium 3.6 Chloride 90 L Carbon Dioxide 21 L Anion Gap 15.0 BUN 11 Creatinine 1.0 GFR Calculation 72 Glucose 97 Calcium 8.1 L Total Bilirubin 0.4 AST 50 H ALT 28 Alkaline Phosphatase 54 Total Protein 6.7 Albumin 3.5 Globulin 3.2 Albumin/Globulin Ratio 1.1 A/P Assessment and plan (1) Pneumonia due to 2019 novel coronavirus: Status: Acute (2) ICD (implantable cardioverter-defibrillator) in place: Status: Chronic (3) Hypoxia: Status: Acute (4) COPD (chronic obstructive pulmonary disease): Status: Chronic Qualifiers: COPD type: unspecified COPD Qualified Code(s): J44.9 - Chronic obstructive pulmonary disease, unspecified (5) Osteoarthrosis: Status: Acute Qualifiers: Osteoarthritis location: multiple joints Osteoarthritis type: unspecified Qualified Code(s): M15.9 - Polyosteoarthritis, unspecified (6) Hypertension, essential: Status: Chronic (7) Hyperlipidemia: Status: Chronic Qualifiers: Hyperlipidemia type: mixed hyperlipidemia Qualified Code(s): E78.2 - Mixed hyperlipidemia Narrative A/P Narrative: Assessment and Plans: 1. CoVID pneumonia: Admit to inpatient med surg telemetry Isolation: airborne and contact Blood culture Serum lactic acid Inflammatory markers cbc w/ auto diff in the AM to trend WBC level CXR every a few days Supplemental oxygen titrate to achieve spo2>=88% (COPD-er) Remdesivir Dexamethasone Lovenox Robitussin DM PRN cough Tylenol PRN fever DuoNEB NEB PRN wheezing Prone 2. COPD: Supplemental oxygen titrate to achieve spo2>=88% (COPD-er) DuoNEB NEB PRN wheezing Breo 3. h/o osteoarthritis bilateral hips: [place] PRN moderate pain 4. Essential HTN: Currently normotensive Metoprolol Losartan 5. Mixed dyslipidemia: Zetia 6. h/o CAD s/p ICD placement: Metoprolol Losartan Aspirin GI ppx: continue oral PPI from home regimen DVT ppx: Lovenox Code status: Full Prognosis: guarded Disposition: inpatient med surg telemetry Time Spent With Patient Time: Total time spent is greater than 50% in coordination of care (as documented) at patient's floor/unit and/or counseling patient: Total time spent with greater than 50% in coordination of care (as documented) at patient's floor/unit and/or counseling patient:: Greater than 35 minutes
[2021-06-30] MEDS ORDERED: ACETAMINOPHEN 325 MG TABLET PO PRN (14:11)
[2021-06-30] MEDS ORDERED: NON FORMULARY MEDICATION 1 DOSE MISCELL (Aspirin [Adult Low Dose Aspirin] 81 MG) PO SCH (14:11)
[2021-06-30] MEDS ORDERED: ONDANSETRON 4 MG/2 ML VIAL IV PRN (14:11)
[2021-06-30] MEDS ORDERED: guaiFENesin/DEXTROMETHORPHAN ORAL SOL PO PRN (14:11)
[2021-06-30] MEDS ORDERED: IPRATROPIUM/ALBUTEROL 3 ML AMPUL.NEB NEB PRN (14:11)
[2021-06-30] MEDS ORDERED: morphine 4 MG/ML VIAL IV PRN (14:11)
[2021-06-30] MEDS ORDERED: HYDROCODONE/APAP 7.5/325MG TABLET PO PRN (14:25)
[2021-06-30 14:54] LABS: Lactate Dehydrogenase 360 U/L (135-225)
[2021-06-30] MEDS ORDERED: REMDESIVIR 200 MG in 0.9 % SODIUM CHLORIDE 250 ML IV ONE (15:00)
--- NOTE | 2021-06-30 15:24 | XRay Report ---
HISTORY: Dyspnea and cough FINDINGS: There is a subtle streaky infiltrate lateral to the right mid hilum. Thin bands of discoid atelectasis are present in both lung bases. There is no lobar consolidation, mass, pulmonary vascular congestion or pleural effusion. The heart size is normal. There is a pacemaker in the right cardiac apex and the power pack in the left pectoral region. Cervical fusion has been performed in the lower neck. Comparison with the prior x-ray done on 05/21/21 shows the small right perihilar infiltrate is new. IMPRESSION: Mild right perihilar pneumonia Interpreted and Authenticated by: Johnie Isaac 06/30/21
[2021-06-30] MEDS: 0.9 % SODIUM CHLORIDE 1,000 ML IV SCH (15:35)
[2021-06-30] MEDS: 0.9 % SODIUM CHLORIDE 10 ML SYRINGE IV SCH ×2 (15:35→20:00)
[2021-06-30 15:51] LABS: INR 1.6 (0.9-1.1); Prothrombin Time 19.5 sec (11.9-14.5)
[2021-06-30] MEDS: Fluticasone Furoate-Vilanterol [Breo Ellipta] Inhaler INH SCH (15:51)
--- NOTE | 2021-06-30 18:55 | EKG ---
[facility] Test Date: 2021-06-30 Pat Name: Gordo Petersen Department: ED Room: Gender: Male [employer] Stitcher: [facility] : 1945 Requested By: Choco Molina Order Number: [id number] Reading MD: Jose Vieyra Measurements Intervals Reynolds Rate: 74 P: 32 MS: 168 QRS: 58 QRSD: 107 T: 68 QT: 389 QTc: 432 Interpretive Statements Sinus rhythm Anterolateral infarct, age indeterminate Electronically Signed On 06-30-2021 18:55:03 PDT by Jose Vieyra /store/M0/[id number]
[2021-06-30] MEDS: DOCUSATE SODIUM 100 MG CAPSULE PO SCH ×2 (19:45→20:00)
[2021-06-30] MEDS: OMEPRAZOLE 20 MG CAPSULE PO SCH (19:45)
[2021-06-30] MEDS: ZOLPIDEM 5 MG TABLET PO PRN (19:45)
[2021-06-30] MEDS: SENNOSIDES 1 TABLET PO SCH ×2 (19:45→20:00)
[2021-06-30] MEDS: ENOXAPARIN 40 MG/0.4 ML SYRINGE SQ SCH (19:45)
[2021-06-30] MEDS: METOPROLOL SUCCINATE 25 MG TAB.XL.24H PO SCH (19:45)
[2021-06-30] MEDS ORDERED: METOPROLOL SUCCINATE 25 MG TAB.XL.24H PO SCH (21:00)
[2021-06-30] MEDS ORDERED: OMEPRAZOLE 20 MG CAPSULE PO SCH (21:00)
[2021-07-01] MEDS: 0.9 % SODIUM CHLORIDE 10 ML SYRINGE IV SCH ×3 (04:54→20:51)
[2021-07-01] MEDS: 0.9 % SODIUM CHLORIDE 1,000 ML IV SCH ×4 (04:54→20:51)
[2021-07-01] MEDS: DEXAMETHASONE 10 MG/ML VIAL IV SCH (08:30)
[2021-07-01] MEDS: EZETIMIBE 10 MG TABLET PO SCH (08:30)
[2021-07-01] MEDS: ENOXAPARIN 40 MG/0.4 ML SYRINGE SQ SCH ×2 (08:30→20:51)
[2021-07-01] MEDS: LOSARTAN 25 MG TABLET PO SCH (08:31)
[2021-07-01] MEDS: DOCUSATE SODIUM 100 MG CAPSULE PO SCH ×2 (08:31→20:51)
[2021-07-01 08:51] LABS: ALT/SGPT 25 U/L (<40); AST/SGOT 41 U/L (<40); Albumin 2.9 gm/dL (3.2-5.2); Albumin/Globulin Ratio 0.9 (1.0-2.3); Alkaline Phosphatase 54 U/L (39-117); Bilirubin,Total 0.3 mg/dL (0.1-1.0); Blood Urea Nitrogen 13 mg/dL (8-23); Carbon Dioxide 20 mmol/L (22-30); Chloride 97 mmol/L (96-108); Globulin 3.2 gm/dL (2.2-3.7); Glomerular Filtration Rate 86; Glucose 106 mg/dL (70-105)
[2021-07-01] MEDS ORDERED: EZETIMIBE 10 MG TABLET PO SCH (09:00)
[2021-07-01] MEDS ORDERED: LOSARTAN 25 MG TABLET PO SCH (09:00)
[2021-07-01 09:17] LABS: Basophils # (Auto) 0 K/mcL (0.00-0.30); Basophils % (Auto) 0 % (0.0-2.0); Eosinophils # (Auto) 0 K/mcL (0.00-0.70); Eosinophils % (Auto) 0 % (0.0-7.0); Hematocrit 47.4 % (40.1-51.0); Hemoglobin 15.9 g/dL (13.7-17.5); Lymphocytes # (Auto) 1.44 K/mcL (1.50-4.80); Lymphocytes % (Auto) 36.6 % (15.5-49.0); Mean Cell Volume 103.7 fL (80.0-100.0); Mean Corpuscular HGB Conc 33.5 g/dL (31.0-36.0); Mean Platelet Volume 10.1 fL (7.4-10.4); Monocytes # (Auto) 0.62 K/mcL (0.10-0.90); Monocytes % (Auto) 15.8 % (1.0-12.0); Neutrophils % (Auto) 47.6 % (38.0-78.0); Platelet Count 122 K/mcL (140-440); RBC 4.57 M/mcL (4.63-6.08); Red Cell Distribution Width 12.4 % (11.5-14.5); WBC 3.9 K/mcL (4.5-11.0)
--- NOTE | 2021-07-01 09:23 | Internal Med Progress Note ---
SUBJECTIVE Subjective Patient information: Note initiated : 07/01/21 at 9:20 am Service Date, if different from initiated Date: [] Patient: Gordo Petersen 76 y/o M admitted on 06/30/21 for cough. Chief Complaint: [CoVID pneumonia] Interval history: History of present illness: Mr. Petersen is a 76 year old M history of COPD, CAD status post ICD placement, essential HTN, mixed dyslipidemia, osteoarthritis bilateral hips, presenting with 1 month history of gradually worsening of shortness of breath together with productive cough with white sputum. Patient is not being vaccinated against Covid pneumonia. Patient denies any sick contact or recent travel. Over the last month, patient has gradually worsening shortness of breath together with productive cough with right sputum. He is also complaining of respiratory wheezing. He is also co mmitting of right-sided chest pain whenever he coughs. He denies any fever or chills or diaphoresis. He is also complaining of general body weakness together with generalized muscle aches. There is no change in appetite and he denies any GI symptoms such as nausea vomiting diarrhea constipation's. Due to the worsening nature of his symptoms, he decided to come to our ED today for further evaluations. Vital signs significant for oxygen saturations 85% on room air. Labs significant for lack of leukocytosis with WBC 3.9. Covid Maria Isabel test positive. 07/01: Afebrile. Been on 3L/min oxygen overnight. Slightly improved degree of SOB. c/o nonproductive cough, no sputum production. c/o mild wheezing. c/o general body weakness. Denies any fever or chills or sweating. Constitutional Vitals: Vital Signs Temp Pulse Resp BP Pulse Ox 36.8 C 68 22 130/68 91 07/01/21 08:00 07/01/21 08:00 07/01/21 08:00 07/01/21 08:00 07/01/21 08:00 Period Temp Pulse Resp BP Sys/Leija Pulse Ox Last 24 Hr 35.3 C-36.8 C 58-90 12-26 93-130/56-103 90-95 Intake and Output 06/30/21 07/01/21 07/01/21 21:59 05:59 13:59 Intake Total 250 1480 Output Total 300 Balance 250 1480 -300 Weight 93.44 kg Intake & Output: Intake & Output 06/30/21 07/01/21 07/01/21 21:59 05:59 13:59 Intake Total 250 1480 Output Total 300 Balance 250 1480 -300 Weight 93.44 kg Intake: IV 250 1000 Sodium Chloride 0.9% 1,000 ml @ 1000 75 mls/hr IV .[id number] JOE Rx#: [id number] Veklury 200 mg In Sodium 250 Chloride 0.9% 250 ml @ 500 mls/ hr IV ONCE ONE Rx#:[id number] Oral 0 480 Output: Void Amount 300 Other: Urine Color Dark Yellow Urine Odor Strong # Voids 1 General appearance: cooperative and no acute distress Head Head exam: Present atraumatic and normocephalic Eye Eye exam: Present EOMI and PERRL ENT ENT exam: Present mucous membranes moist, normal exam and normal external ear exam Additional comments: Nasal cannula in place Neck Neck exam: Present normal inspection; Absent lymphadenopathy, tenderness and thyromegaly Respiratory Respiratory exam: Present rhonchi; Absent accessory muscle use, respiratory distress and wheezes Cardiovascular Cardiovascular exam: Present normal rate and rhythm; Absent JVD GI/Abdominal GI/Abdominal exam: Present normal bowel sounds and soft; Absent organomegaly and tenderness Rectal Rectal exam: Present deferred Extremities Exam Extremities exam: Present full ROM, normal capillary refill and normal inspection; Absent tenderness Neurological Exam Neurological exam: Present alert, CN II-XII intact and oriented X3; Absent motor sensory deficit Psychiatric Psychiatric exam: Present normal affect and normal mood; Absent anxious and depressed Skin Skin exam: Present dry and intact OBJ DATA Labs CBC & Chem 7: 07/01/21 06:21 07/01/21 06:21 Labs: Abnormal Lab Results 07/01/21 07/01/21 06/30/21 06:21 06:21 09:44 WBC 3.9 L RBC 4.57 L MCV 103.7 H MCH 34.8 H Plt Count 122 L Clay % (Auto) 15.8 H Lymph # (Auto) 1.44 L PT INR Fibrinogen D-Dimer VBG Lactic Acid 0.4 L Sodium 129 L Chloride Carbon Dioxide 20 L Glucose 106 H Calcium 8.0 L Ferritin AST 41 H Lactate Dehydrogenase C-Reactive Protein Albumin 2.9 L Albumin/Globulin Ratio 0.9 L Procalcitonin 06/30/21 06/30/21 06/30/21 08:57 08:57 08:57 WBC RBC MCV MCH Plt Count [place] % (Auto) Lymph # (Auto) PT 19.5 H INR 1.6 H Fibrinogen 185 L D-Dimer 0.60 H VBG Lactic Acid Sodium Chloride Carbon Dioxide Glucose Calcium Ferritin 1842.0 H AST Lactate Dehydrogenase 360 H C-Reactive Protein 2.70 H Albumin Albumin/Globulin Ratio Procalcitonin 0.11 H 06/30/21 06/30/21 08:57 08:57 WBC 3.9 L RBC 4.55 L MCV MCH 34.9 H Plt Count 123 L Clay % (Auto) Lymph # (Auto) 1.35 L PT INR Fibrinogen D-Dimer VBG Lactic Acid Sodium 126 L Chloride 90 L Carbon Dioxide 21 L Glucose Calcium 8.1 L Ferritin AST 50 H Lactate Dehydrogenase C-Reactive Protein Albumin Albumin/Globulin Ratio Procalcitonin Meds: Medications Acetaminophen (Acetaminophen 325 Mg Tablet) 650 mg PO Q6HP PRN; Protocol PRN Reason: Per Pain Protocol/Fever > 101 Hydrocodone Bitart/Acetaminophen (Hydrocodone/Apap 7.5/325mg Tablet) 1 tab PO Q4HP PRN PRN Reason: Pain Albuterol/Ipratropium (Ipratropium/Albuterol 3 Ml Ampul.Neb) 3 ml NEB Q4HRT PRN PRN Reason: Wheezing Aspirin (Aspirin 81 Mg Tab.Chew) 81 mg PO TuFr@0900 [facility] Dexamethasone (Dexamethasone 10 Mg/Ml Vial) 6 mg IV DAILY [facility] Last Admin: 07/01/21 08:30 Dose: 6 mg Documented by: Docusate Sodium (Docusate Sodium 100 Mg Capsule) 100 mg PO BID [facility] Last Admin: 07/01/21 08:31 Dose: 100 mg Documented by: Ezetimibe (Ezetimibe 10 Mg Tablet) 10 mg PO QDAY [facility] Last Admin: 07/01/21 08:30 Dose: 10 mg Documented by: Enoxaparin Sodium (Enoxaparin 40 Mg/0.4 Ml Syringe) 40 mg SQ BID [facility] Last Admin: 07/01/21 08:30 Dose: 40 mg Documented by: Guaifenesin (Guaifenesin/Dextromethorphan Oral Keena) 10 ml PO Q4HP PRN PRN Reason: Cough Sodium Chloride (Sodium Chloride 0.9%) 1,000 mls @ 75 mls/hr IV .[id number] [facility] Last Admin: 07/01/21 08:31 Dose: 75 mls/hr Documented by: REMDESIVIR 100 mg/ Sodium (Chloride) 250 mls @ 500 mls/hr IV Q24H [facility] Stop: 07/04/21 12:01 Losartan Potassium (Losartan 25 Mg Tablet) 25 mg PO QDAY [facility] Last Admin: 07/01/21 08:31 Dose: 25 mg Documented by: Metoprolol Succinate (Metoprolol Succinate 25 Mg Tab.Xl.24h) 25 mg PO [facility] Last Admin: 06/30/21 19:45 Dose: 25 mg Documented by: Morphine Sulfate (Morphine 4 Mg/Ml Vial) 4 mg IV Q4HP PRN; Protocol PRN Reason: Per Pain Protocol Omeprazole (Omeprazole 20 Mg Capsule) 20 mg PO [facility] Last Admin: 06/30/21 19:45 Dose: 20 mg Documented by: Ondansetron HCl (Ondansetron 4 Mg/2 Ml Vial) 4 mg IV Q6HP PRN PRN Reason: Nausea And Vomiting Fluticasone Furoate- Vilanterol [Breo Ellipta] Inhaler 1 dose INH Q24H [facility] Last Admin: 06/30/21 15:51 Dose: Not Given Documented by: Senna (Sennosides 1 Tablet) 2 tab PO [facility] Last Admin: 06/30/21 20:00 Dose: Not Given Documented by: Sodium Chloride (0.9 % Sodium Chloride 10 Ml Syringe) 10 ml IV Q8 [facility] Last Admin: 07/01/21 04:54 Dose: Not Given Documented by: Zolpidem Tartrate (Zolpidem 5 Mg Tablet) 5 mg PO HSP PRN PRN Reason: Insomnia Last Admin: 06/30/21 19:45 Dose: 5 mg Documented by: A/P Assessment and plan (1) Pneumonia due to 2019 novel coronavirus: Status: Acute (2) ICD (implantable cardioverter-defibrillator) in place: Status: Chronic (3) Hypoxia: Status: Acute (4) COPD (chronic obstructive pulmonary disease): Status: Chronic Qualifiers: COPD type: unspecified COPD Qualified Code(s): J44.9 - Chronic obstructive pulmonary disease, unspecified (5) Osteoarthrosis: Status: Acute Qualifiers: Osteoarthritis location: multiple joints Osteoarthritis type: unspecified Qualified Code(s): M15.9 - Polyosteoarthritis, unspecified (6) Hypertension, essential: Status: Chronic (7) Hyperlipidemia: Status: Chronic Qualifiers: Hyperlipidemia type: mixed hyperlipidemia Qualified Code(s): E78.2 - Mixed hyperlipidemia Narrative A/P Narrative: Assessment and Plans: 1. CoVID pneumonia: Stays in inpatient med surg telemetry Isolation: airborne and contact Blood culture, no growth to date Serum lactic acid Inflammatory markers cbc w/ auto diff in the AM to trend WBC level CXR every a few days Supplemental oxygen titrate to achieve spo2>=88% (COPD-er) Remdesivir Dexamethasone Lovenox Robitussin DM PRN cough Tylenol PRN fever DuoNEB NEB PRN wheezing Prone 2. COPD: Supplemental oxygen titrate to achieve spo2>=88% (COPD-er) DuoNEB NEB PRN wheezing Breo 3. h/o osteoarthritis bilateral hips: [place] PRN moderate pain 4. Essential HTN: Currently normotensive Metoprolol Losartan 5. Mixed dyslipidemia: Zetia 6. h/o CAD s/p ICD placement: Metoprolol Losartan Aspirin GI ppx: continue oral PPI from home regimen DVT ppx: Lovenox Code status: Full Prognosis: guarded Disposition: inpatient med surg telemetry Time Spent With Patient Time: Total time spent is greater than 50% in coordination of care (as documented) at patient's floor/unit and/or counseling patient: QUALITY VTE Deep Vein Thrombosis/Pulmonary Embolism Present on Admission: No
[2021-07-01] MEDS: REMDESIVIR 100 MG in 0.9 % SODIUM CHLORIDE 250 ML IV SCH (11:52)
[2021-07-01] MEDS: Fluticasone Furoate-Vilanterol [Breo Ellipta] Inhaler INH SCH (14:02)
--- NOTE | 2021-07-01 14:10 | Internal Med Progress Note ---
SUBJECTIVE Subjective Patient information: Note initiated : 07/02/21 at 2:00 pm Service Date, if different from initiated Date: [] Patient: Gordo Petersen 76 y/o M admitted on 06/30/21 for cough. Chief Complaint: [] Interval history: Mr. Petersen is a 76 year old M history of COPD, CAD status post ICD placement, essential HTN, mixed dyslipidemia, osteoarthritis bilateral hips, presenting with 1 month history of gradually worsening of shortness of breath together with productive cough with white sputum. Patient has not being vaccinated against COVID-19. Patient denied any sick contact or recent travel. Over the last month, the patient had gradually worsening shortness of breath together with productive cough with right sputum. He is also complaining of respiratory wheezing. He is also committing of right-sided chest pain whenever he coughs. He denies any fever or chills or diaphoresis. He is also complaining of general body weakness together with generalized muscle aches. There is no change in appetite and he denies any GI symptoms such as nausea vomiting diarrhea constipation's. Due to the worsening nature of his symptoms, he decided to come to our ED for further evaluations. Vital signs significant for oxygen saturations 85% on room air. Labs significant for lack of leukocytosis with WBC 3.9. Covid Maria Isabel test positive. 07/01: Afebrile. Been on 3L/min oxygen overnight. Slightly improved degree of SOB. c/o nonproductive cough, no sputum production. c/o mild wheezing. c/o general body weakness. Denies any fever or chills or sweating. Physical Exam Head: Atraumatic, normal inspection. Eyes: normal appearance, no scleral icterus. Neck: full ROM Respiratory: no respiratory distress. Cardiovascular: normal rate and rhythm, S1, S2. GI/Abdominal: soft, nontender, no guarding. Extremities: full range of motion, nontender. Neurological: CN II-XII intact, intact motor, intact sensation. Psychiatric: normal mood. Skin: warm, normal color Constitutional Vitals: Vital Signs Temp Pulse Resp BP Pulse Ox 96.9 F L 71 20 108/60 93 07/01/21 12:00 07/01/21 12:00 07/01/21 12:00 07/01/21 12:00 07/01/21 12:00 Period Temp Pulse Resp BP Sys/Leija Pulse Ox Last 24 Hr 95.5 F-98.2 F 61-90 16-22 108-130/60-75 91-95 Intake and Output 07/01/21 07/01/21 07/01/21 05:59 13:59 21:59 Intake Total 1480 250 Output Total 300 Balance 1480 -50 Intake & Output: Intake & Output 07/01/21 07/01/21 07/01/21 05:59 13:59 21:59 Intake Total 1480 250 Output Total 300 Balance 1480 -50 Intake: IV 1000 250 Sodium Chloride 0.9% 1,000 ml @ 1000 75 mls/hr IV .[id number] JOE Rx#: [id number] Veklury 100 mg In Sodium 250 Chloride 0.9% 250 ml @ 500 mls/ hr IV Q24H JOE Rx#:[id number] Oral 480 Output: Void Amount 300 Other: Urine Color Dark Yellow Urine Odor Strong # Voids 1 OBJ DATA Labs CBC & Chem 7: 07/01/21 06:21 07/01/21 06:21 Labs: Abnormal Lab Results 07/01/21 07/01/21 06/30/21 06:21 06:21 09:44 WBC 3.9 L RBC 4.57 L MCV 103.7 H MCH 34.8 H Plt Count 122 L [place] % (Auto) 15.8 H Lymph # (Auto) 1.44 L PT INR Fibrinogen D-Dimer VBG Lactic Acid 0.4 L Sodium 129 L Chloride Carbon Dioxide 20 L Glucose 106 H Calcium 8.0 L Ferritin AST 41 H Lactate Dehydrogenase C-Reactive Protein Albumin 2.9 L Albumin/Globulin Ratio 0.9 L Procalcitonin 06/30/21 06/30/21 06/30/21 08:57 08:57 08:57 WBC RBC MCV MCH Plt Count [place] % (Auto) Lymph # (Auto) PT 19.5 H INR 1.6 H Fibrinogen 185 L D-Dimer 0.60 H VBG Lactic Acid Sodium Chloride Carbon Dioxide Glucose Calcium Ferritin 1842.0 H AST Lactate Dehydrogenase 360 H C-Reactive Protein 2.70 H Albumin Albumin/Globulin Ratio Procalcitonin 0.11 H 06/30/21 06/30/21 08:57 08:57 WBC 3.9 L RBC 4.55 L MCV MCH 34.9 H Plt Count 123 L [place] % (Auto) Lymph # (Auto) 1.35 L PT INR Fibrinogen D-Dimer VBG Lactic Acid Sodium 126 L Chloride 90 L Carbon Dioxide 21 L Glucose Calcium 8.1 L Ferritin AST 50 H Lactate Dehydrogenase C-Reactive Protein Albumin Albumin/Globulin Ratio Procalcitonin Meds: Medications Acetaminophen (Acetaminophen 325 Mg Tablet) 650 mg PO Q6HP PRN; Protocol PRN Reason: Per Pain Protocol/Fever > 101 Hydrocodone Bitart/Acetaminophen (Hydrocodone/Apap 7.5/325mg Tablet) 1 tab PO Q4HP PRN PRN Reason: Pain Albuterol/Ipratropium (Ipratropium/Albuterol 3 Ml Ampul.Neb) 3 ml NEB Q4HRT PRN PRN Reason: Wheezing Aspirin (Aspirin 81 Mg Tab.Chew) 81 mg PO TuFr@0900 [facility] Dexamethasone (Dexamethasone 10 Mg/Ml Vial) 6 mg IV DAILY [facility] Last Admin: 07/01/21 08:30 Dose: 6 mg Documented by: Docusate Sodium (Docusate Sodium 100 Mg Capsule) 100 mg PO BID [facility] Last Admin: 07/01/21 08:31 Dose: 100 mg Documented by: Ezetimibe (Ezetimibe 10 Mg Tablet) 10 mg PO QDAY [facility] Last Admin: 07/01/21 08:30 Dose: 10 mg Documented by: Enoxaparin Sodium (Enoxaparin 40 Mg/0.4 Ml Syringe) 40 mg SQ BID [facility] Last Admin: 07/01/21 08:30 Dose: 40 mg Documented by: Guaifenesin (Guaifenesin/Dextromethorphan Oral Keena) 10 ml PO Q4HP PRN PRN Reason: Cough Sodium Chloride (Sodium Chloride 0.9%) 1,000 mls @ 75 mls/hr IV .[id number] [facility] Last Admin: 07/01/21 08:31 Dose: 75 mls/hr Documented by: REMDESIVIR 100 mg/ Sodium (Chloride) 250 mls @ 500 mls/hr IV Q24H [facility] Stop: 07/04/21 12:01 Last Infusion: 07/01/21 12:31 Dose: Infused Documented by: Losartan Potassium (Losartan 25 Mg Tablet) 25 mg PO QDAY [facility] Last Admin: 07/01/21 08:31 Dose: 25 mg Documented by: Metoprolol Succinate (Metoprolol Succinate 25 Mg Tab.Xl.24h) 25 mg PO [facility] Last Admin: 06/30/21 19:45 Dose: 25 mg Documented by: Morphine Sulfate (Morphine 4 Mg/Ml Vial) 4 mg IV Q4HP PRN; Protocol PRN Reason: Per Pain Protocol Omeprazole (Omeprazole 20 Mg Capsule) 20 mg PO [facility] Last Admin: 06/30/21 19:45 Dose: 20 mg Documented by: Ondansetron HCl (Ondansetron 4 Mg/2 Ml Vial) 4 mg IV Q6HP PRN PRN Reason: Nausea And Vomiting Fluticasone Furoate- Vilanterol [Breo Ellipta] Inhaler 1 dose INH Q24H [facility] Last Admin: 06/30/21 15:51 Dose: Not Given Documented by: Senna (Sennosides 1 Tablet) 2 tab PO [facility] Last Admin: 06/30/21 20:00 Dose: Not Given Documented by: Sodium Chloride (0.9 % Sodium Chloride 10 Ml Syringe) 10 ml IV Q8 [facility] Last Admin: 07/01/21 13:07 Dose: Not Given Documented by: Zolpidem Tartrate (Zolpidem 5 Mg Tablet) 5 mg PO HSP PRN PRN Reason: Insomnia Last Admin: 06/30/21 19:45 Dose: 5 mg Documented by: A/P Narrative A/P Narrative: Assessment: 76 year old M history of COPD, CAD status post ICD placement, essential HTN, mixed dyslipidemia, osteoarthritis bilateral hips, presenting with 1 month history of gradually worsening of shortness of breath together with productive cough with white sputum. The patient had a positive SARS CoV-2 Maria Isabel test and was hypoxic in the ED. He was admitted for COVID-19 pneumonia. #Acute hypoxic respiratory failure #Severe COVID-19 #COPD #CAD #HTN #HLD #Osteoarthritis Plan -Dexamethasone and Remdesivir. -Oxygen supplementation as needed. -Monitor respiratory status. -Daily labs. -Essential home meds. -Consider CT chest. -DVT ppx: Lovenox -Code status: Full -Disposition: TBD Time Spent With Patient Time: Total time spent is greater than 50% in coordination of care (as documented) at patient's floor/unit and/or counseling patient: QUALITY VTE Deep Vein Thrombosis/Pulmonary Embolism Present on Admission: No
[2021-07-01] MEDS: ZOLPIDEM 5 MG TABLET PO PRN (20:51)
[2021-07-01] MEDS: OMEPRAZOLE 20 MG CAPSULE PO SCH (20:51)
[2021-07-01] MEDS: METOPROLOL SUCCINATE 25 MG TAB.XL.24H PO SCH (20:51)
[2021-07-01] MEDS: SENNOSIDES 1 TABLET PO SCH (20:51)
[2021-07-02] MEDS: 0.9 % SODIUM CHLORIDE 10 ML SYRINGE IV SCH ×2 (06:48→13:08)
[2021-07-02] MEDS: 0.9 % SODIUM CHLORIDE 1,000 ML IV SCH ×2 (07:08→09:25)
[2021-07-02 08:15] LABS: Basophils # (Auto) 0.01 K/mcL (0.00-0.30); Basophils % (Auto) 0.2 % (0.0-2.0); Eosinophils # (Auto) 0 K/mcL (0.00-0.70); Eosinophils % (Auto) 0 % (0.0-7.0); Hematocrit 43.1 % (40.1-51.0); Hemoglobin 14.4 g/dL (13.7-17.5); Lymphocytes # (Auto) 1.17 K/mcL (1.50-4.80); Lymphocytes % (Auto) 27.3 % (15.5-49.0); Mean Cell Volume 100.9 fL (80.0-100.0); Mean Corpuscular HGB Conc 33.4 g/dL (31.0-36.0); Mean Platelet Volume 10.2 fL (7.4-10.4); Monocytes # (Auto) 0.68 K/mcL (0.10-0.90); Monocytes % (Auto) 15.9 % (1.0-12.0); Neutrophils % (Auto) 56.6 % (38.0-78.0); Platelet Count 138 K/mcL (140-440); RBC 4.27 M/mcL (4.63-6.08); Red Cell Distribution Width 12.2 % (11.5-14.5); WBC 4.3 K/mcL (4.5-11.0)
[2021-07-02 08:37] LABS: ALT/SGPT 24 U/L (<40); AST/SGOT 40 U/L (<40); Albumin 2.7 gm/dL (3.2-5.2); Alkaline Phosphatase 48 U/L (39-117); Bilirubin,Direct < 0.2 mg/dL (0-0.3); Bilirubin,Total 0.3 mg/dL (0.1-1.0); Blood Urea Nitrogen 14 mg/dL (8-23); Calcium 7.9 mg/dL (8.6-10.4); Carbon Dioxide 21 mmol/L (22-30); Chloride 101 mmol/L (96-108); Globulin 2.7 gm/dL (2.2-3.7); Glomerular Filtration Rate 96; Glucose 108 mg/dL (70-105); Lactate Dehydrogenase 391 U/L (135-225); Phosphorous 2.1 mg/dL (2.5-4.5); Triglycerides 51 mg/dL (<150)
[2021-07-02] MEDS ORDERED: ASPIRIN 81 MG TAB.CHEW PO SCH ×2 (09:00)
[2021-07-02] MEDS: LOSARTAN 25 MG TABLET PO SCH (09:23)
[2021-07-02] MEDS: EZETIMIBE 10 MG TABLET PO SCH (09:23)
[2021-07-02] MEDS: DOCUSATE SODIUM 100 MG CAPSULE PO SCH (09:24)
[2021-07-02] MEDS: ENOXAPARIN 40 MG/0.4 ML SYRINGE SQ SCH (09:24)
[2021-07-02] MEDS: DEXAMETHASONE 10 MG/ML VIAL IV SCH (09:24)
[2021-07-02] MEDS: REMDESIVIR 100 MG in 0.9 % SODIUM CHLORIDE 250 ML IV SCH (13:06)
[2021-07-02] MEDS: Fluticasone Furoate-Vilanterol [Breo Ellipta] Inhaler INH SCH (13:06)
--- NOTE | 2021-07-02 16:27 | Discharge Summary ---
Discharge Provider Provider Patient information: Note initiated : 07/02/21 at 4:25 pm Service Date, if different from initiated Date: [] Patient: Gordo Petersen 76 y/o M admitted on 06/30/21 for cough. Chief Complaint: [] Date of admission: 06/30/21 13:45 Discharge date: 07/02/21 Primary care physician: Moiéss Alcocer PA-C Consults: 06/30/21 Consult to Physician [CONS] Stat Comment: Consulting Provider: Quan Draper Reason For Exam: Physician to Consult Discharge Meds Discharge Medications Home Medications epinephrine 0.3 mg IM ONCE PRN 10/14/18 [History Confirmed 06/30/21 Last Taken Unknown] metoprolol succinate 25 mg PO HS 10/14/18 [History Confirmed 06/30/21 Last Taken 10/19/18 21:00 25 mg.] hydrocodone-acetaminophen 1 - 2 tab PO Q4HP PRN #90 tab 10/21/18 [Rx Confirmed 06/30/21 Last Taken Unknown] aspirin 81 mg tablet,delayed release 81 mg PO .TWICE A WEEK tab 08/24/19 [History Confirmed 06/30/21 Last Taken Unknown] losartan 25 mg tablet 25 mg PO QDAY 08/27/20 [History Confirmed 06/30/21 Last Taken Unknown] ezetimibe 10 mg tablet 10 mg PO QDAY 01/01/21 [History Confirmed 06/30/21 Last Taken Unknown] omeprazole 20 mg capsule,delayed release 20 mg PO HS #90 cap 06/13/21 [Rx Confirmed 06/30/21 Last Taken Unknown] fluticasone furoate 100 mcg-vilanterol 25 mcg/dose inhalation powder 1 inh INHALATION Q24H #60 ea 06/27/21 [Rx Confirmed 06/30/21 Last Taken Unknown] dexamethasone 6 mg PO QDAY #9 tab 07/02/21 [Rx Last Taken Unknown] COURSE Hospital Course Hospital course: Mr. Petersen is a 76 year old M history of COPD, CAD status post ICD placement, essential HTN, mixed dyslipidemia, osteoarthritis bilateral hips, presenting with 1 month history of gradually worsening of shortness of breath together with productive cough with white sputum. Patient has not being vaccinated against COVID-19. Patient denied any sick contact or recent travel. Over the last month, the patient had gradually worsening shortness of breath together with productive cough with right sputum. He is also complaining of respiratory wheezing. He is also committing of right-sided chest pain whenever he coughs. He denies any fever or chills or diaphoresis. He is also complaining of general body weakness together with generalized muscle aches. There is no change in appetite and he denies any GI symptoms such as nausea vomiting diarrhea constipation's. Due to the worsening nature of his symptoms, he decided to come to our ED for further evaluations. Vital signs significant for oxygen saturations 85% on room air. Labs significant for lack of leukocytosis with WBC 3.9. Covid Maria Isabel test positive. 07/01: Afebrile. Been on 3L/min oxygen overnight. Slightly improved degree of SOB. c/o nonproductive cough, no sputum production. c/o mild wheezing. c/o general body weakness. Denies any fever or chills or sweating. 07/02: Discharged to home on Dexamethasone, home oxygen evaluation prior to discharge. Physical Exam Head: Atraumatic, normal inspection. Eyes: normal appearance, no scleral icterus. Neck: full ROM Respiratory: no respiratory distress. Cardiovascular: normal rate and rhythm, S1, S2. GI/Abdominal: soft, nontender, no guarding. Extremities: full range of motion, nontender. Neurological: CN II-XII intact, intact motor, intact sensation. Psychiatric: normal mood. Skin: warm, normal color Discharge diagnosis: Severe COVID-19 pneumonia Time Spent with Patient Time attestation: Total time spent providing and/or coordinating discharge services: EXAM Constitutional Vitals: Temp Pulse Resp BP Pulse Ox 97 F 70 15 129/80 90 07/02/21 13:10 07/02/21 13:10 07/02/21 13:10 07/02/21 13:10 07/02/21 14:40 Discharge Data Data Completed and Pending Labs on day of discharge: Labs from last 24 hours 07/02/21 07/02/21 06:49 06:49 WBC 4.3 L RBC 4.27 L Hgb 14.4 Hct 43.1 MCV 100.9 H MCH 33.7 MCHC 33.4 RDW 12.2 Plt Count 138 L MPV 10.2 Neut % (Auto) 56.6 Lymph % (Auto) 27.3 Desha % (Auto) 15.9 H Eos % (Auto) 0 Baso % (Auto) 0.2 Lymph # (Auto) 1.17 L Desha # (Auto) 0.68 Eos # (Auto) 0 Baso # (Auto) 0.01 Absolute Neutrophils 2.42 Sodium 133 Potassium 4.0 Chloride 101 Carbon Dioxide 21 L Anion Gap 11.0 BUN 14 Creatinine 0.6 L GFR Calculation 96 Glucose 108 H Uric Acid 3.0 Calcium 7.9 L Phosphorus 2.1 L Magnesium 1.9 Total Bilirubin 0.3 Direct Bilirubin < 0.2 GGT 78 H AST 40 H ALT 24 Alkaline Phosphatase 48 Lactate Dehydrogenase 391 H C-Reactive Protein 0.80 Total Protein 5.4 L Albumin 2.7 L Globulin 2.7 Albumin/Globulin Ratio 1.0 Triglycerides 51 Preliminary micro results at discharge 06/30/21 09:44 Blood Culture - Preliminary Blood 06/30/21 09:35 Blood Culture - Preliminary Blood Discharge Plan Patient/Caregiver Discharge Instructions Activity: increase activity as tolerated Prescriptions: New dexamethasone 6 mg tablet 6 mg PO QDAY Qty: 9 RF: 0 Continued omeprazole 20 mg capsule,delayed release(DR/EC) 20 mg PO HS Qty: 90 RF: 3 Breo Ellipta 100-25 mcg/dose blister with device 1 inh inhalation Q24H Qty: 60 RF: 0 aspirin [Adult Low Dose Aspirin] 81 mg tablet,delayed release (DR/EC) 81 mg PO .TWICE A WEEK RF: 0 losartan 25 mg tablet 25 mg PO QDAY RF: 0 ezetimibe [Zetia] 10 mg tablet 10 mg PO QDAY RF: 0 metoprolol succinate 25 MG tablet extended release 24 hr 25 mg PO HS RF: 0 epinephrine 0.3 MG/0.3 ML auto-injector 0.3 mg IM ONCE PRN (Reason: Allergic Reaction) RF: 0 hydrocodone-acetaminophen 1 TAB tablet 1 - 2 tab PO Q4HP PRN (Reason: Pain Level 3-6) Qty: 90 RF: 0 Follow Up Plan Follow up with: Moisés Alcocer PA-C [Primary Care Provider] - Patient Disposition: Home, Self-Care Overall status at discharge: patient is progressing back to baseline Discharge Orders: Discharge Order (Routine); Ordered 07/02/21 Ordered By: Ziggy DUARTE VTE Deep Vein Thrombosis/Pulmonary Embolism Present on Admission: No
== END 2021-07-02 19:04 | disposition home or self-care (01) | DRG 177 ==
LOC: ED 08:03 → MEDSUR 13:45
PROVIDERS: ADMIT Internal Medicine; ATTEND Internal Medicine